=== PATIENT | male | born 1955 | race Caucasian/White ===

== ENCOUNTER 2017-07-23 10:38 | Emergency (ER) | payer MEDICARE, OTHER ==
[2017-07-23 11:13] LABS: #Basophils 0.1 thou/uL (0.0-0.2); #Eosinphils 0.4 thou/uL (0.0-0.7); #Lymphocytes 1.9 thou/uL (1.20-3.40); #Monocytes 0.6 thou/uL (0.11-0.59); #Neutrophils 4.7 thou/uL (1.40-6.50); %Basophils 1.2 % (0.0-1.0); %Eosinophils 5.4 % (0.0-10.0); %Lymphocytes 24.5 % (21.0-51.0); %Monocytes 7.9 % (0.0-10.0); %Neutrophils 60.9 % (42.0-75.0); Hemoglobin 16.5 g/dL (14.0-18.0); Mean Corpuscular Hemoglobin 28.7 pg (27.0-31.0); Mean Corpuscular Volume 86.8 fl (80.0-94.0); Mean Platelet Volume 7.4 fL (7.4-10.4); Platelet Count 220 thou/uL (130-400); RBC Distribution Width 13.2 % (11.5-14.5); Red Blood Cell (RBC) Count 5.76 mill/uL (4.70-6.10); White Blood Cell (WBC) Count 7.7 thou/uL (4.8-10.8)
[2017-07-23] MEDS ORDERED: Ondansetron HCl/PF 4 MG/2 ML Vial ONE (11:14)
[2017-07-23] MEDS ORDERED: Ketorolac Tromethamine 30 MG/ML VIAL ONE (11:14)
[2017-07-23 11:26] LABS: Anion Gap 16 mmol/L (10-20); BUN (Urea Nitrogen) 11 mg/dL (8.4-25.7); Calc. Creatinine Clearance 0 mL/min (70-130); Calcium 9.8 mg/dL (7.8-10.44); Carbon Dioxide 27 mmol/L (23-31); Chloride 101 mmol/L (98-107); Estimated GFR-MDRD 83; Glucose 122 mg/dL (80-115); Potassium 4.1 mmol/L (3.5-5.1); Sodium 140 mmol/L (136-145)
[2017-07-23 11:34] LABS: Bilirubin Negative (Negative); Blood, Urine Moderate (Negative); Clarity Clear (Clear); Glucose, Urine (Dipstick) 100 mg/dL (Negative); Leukocyte Negative (Negative); Nitrite Negative (Negative); Protein, Urine (Dipstick) Negative (Neg-Trace); Specific Gravity, Urine 1.015 (1.005-1.030); Urobilinogen 0.2 mg/dL (0.2-1.0); pH, Urine 8.5 (5.0-9.0)
[2017-07-23 11:39] LABS: Squamous Epithelial 0-3 HPF (0-3); WBC/HPF 0-3 HPF (0-3)
--- NOTE | 2017-07-23 11:57 | CT ---
CT OF THE ABDOMEN AND PELVIS WITHOUT CONTRAST: COMPARISON: 02/05/17. HISTORY: Left flank pain with a history of kidney stones. The patient's spouse says that he has right low abdirashid k pain. TECHNIQUE: Multiple contiguous axial images were obtained in a CT of the abdomen and pelvis without contrast. C oronal reformats were performed. FINDINGS: There are 2 calcifications in the distal aspect of the left ureter at the ureterovesical junction. T he largest measures 5-6 mm in size and the smaller one is more proximal. There is moderate left-side d hydronephrosis. There are punctate 1 mm calcifications in the right kidney. There is no evidence of right-sided hydronephrosis. Hyperdensity is seen in the dependent aspect of the gallbladder which likely represents gallstones. The liver, adrenal glands, spleen, and pancreas are unremarkable, although evaluation is limited on t his noncontrast examination. The large and small bowel are unremarkable. No abdominal or pelvis lymphadenopathy are seen. Athero sclerotic calcifications are seen in the aorta. Degenerative changes are seen in the aorta. Degenerative changes are seen in the spine. The visualized inferior thorax and abdominal wall soft t issues are unremarkable. IMPRESSION: 1. Left distal ureteral calcifications with moderate left hydronephrosis. 2. Nonobstructing right renal calcifications. POS: [facility]
== END 2017-07-23 12:00 | disposition home or self-care (01) ==
LOC: SCSER 10:38
DX: N13.2 Hydronephrosis with renal and ureteral calculous obstruction (principal)
CPT/HCPCS: 74176; 80048; 81003; 81015; 85025; 87086; 96361; 96374; 96375; J1885; J2405

== ENCOUNTER 2017-08-02 14:27 | Outpatient (CLI) | payer MEDICARE, OTHER ==
[~2017-08-02 14:27] MED LIST: Gadobenate Dimeglumine 529 MG/1 ML (20ML VIAL) ONE
--- NOTE | 2017-08-02 15:26 | RAD ---
LUMBAR SPINE FOUR VIEWS: Date: 08-02-17 History: Multiple sclerosis. Back pain. FINDINGS: Lumbar vertebral body height and alignment appears normal on the neutral lateral view. The pedicles a ppear intact on frontal imaging. There is a suture line overlying the mid right abdomen. There is multilevel lower lumbar spine facet hypertrophy. There is atherosclerotic calcification of t he abdominal aorta. On flexion imaging there is no significant anterolisthesis or retrolisthesis. On extension imaging there is no significant anterolisthesis or retrolisthesis. There is mild anterior osteophyte formation at T12-L1 as well as L2-3 and L3-4. IMPRESSION: Degenerative changes. No acute osseous abnormality. If there are radicular symptoms, MRI advised. POS: [facility]
--- NOTE | 2017-08-02 16:29 | MRI ---
MRI OF THE LUMBAR SPINE WITH AND WITHOUT CONTRAST 08/02/17 COMPARISON: None. HISTORY: Chronic low back pain for several years, multiple sclerosis. FINDINGS: There is a T2 hyperintense nonenhancing lesion within the distal aspect of the thoracic cord at the a xial level of the T12-L1 interspace measuring approximately 5 mm, consistent with the provided histor y of multiple sclerosis/demyelinating disease. The sagittal STIR imaging demonstrates no focal area of osseous marrow edema. No anterolisthesis or r etrolisthesis is seen within the lumbar spine. Lumbar vertebral body height and alignment is grossly unremarkable. T12-L1: Intervertebral disc height and signal intensity is within normal limits. There is mild bilate ral facet hypertrophy and mild anterior osteophyte formation with no significant central canal or phil ral foraminal stenosis. L1-2: There is a small right foraminal disc protrusion. There is mild bilateral facet hypertrophy. Th ere is no significant central canal or neural foraminal stenosis. L2-3: Mild bilateral facet hypertrophy and hypertrophy of ligamentum flavum. There is disc space narr owing and mild disc bulge. There is no central canal stenosis or neural foraminal stenosis. L4-5: There is mild bilateral facet hypertrophy. There is disc space narrowing and disc bulge with no significant central canal or neural foraminal stenosis. L4-5: Mild bilateral facet hypertrophy. There is disc desiccation with no significant central canal o r neural foraminal stenosis. L5-S1: There is disc space narrowing and disc desiccation with central disc protrusion and associated annular tear. No associated central canal stenosis. There is bilateral facet hypertrophy and mild bi lateral neural foraminal stenosis. There is mild enhancement associated with the small central annula r tear posteriorly. Imaged retroperitoneal structures demonstrate no worrisome findings. Postcontrast imaging demonstrates no abnormal enhancement involving nerve roots of the cauda equina. Intervertebral disc signal and osseous marrow signal appears unremarkable on postcontrast imaging wit h no abnormal enhancement seen. IMPRESSION: 1. T2 hyperintense intramedullary lesion within the distal aspect of the thoracic cord, consiste nt with the patient's history of demyelinating disease. Recommend full evaluation of the spine with M R of the cervical and thoracic spine as well as MRI of the brain with and without contrast to evaluat ed full extent of demyelinating disease as clinically warranted. 2. No significant central canal or neural foraminal stenosis seen within the lumbar spine. Degen erative disc disease as above. POS: [facility]
== END 2017-08-02 14:28 | disposition home or self-care (01) ==
LOC: TBSIIMAG 14:27
PROVIDERS: ATTEND Surgery
DX: M54.5 Low back pain (principal); G35 Multiple sclerosis; M47.816 Spondylosis without myelopathy or radiculopathy, lumbar region
CPT/HCPCS: 72110; 72158

== ENCOUNTER 2017-08-23 13:27 | Outpatient (CLI) | payer MEDICARE, OTHER ==
--- NOTE | 2017-08-23 16:32 | MRI ---
MRI OF THE THORACIC SPINE WITH AND WITHOUT CONTRAST: INDICATION: Comes today with a history of multiple sclerosis. TECHNIQUE: Multiplanar, multisequence MR images were obtained of the thoracic spine with and without contrast. 16 ml of Multihance was utilized. COMPARISON: No comparisons are available. On the central, sagittal, and axillary images there is posterior area of increased T2 signal intensit y involving the posterior aspect of the spinal cord at C7 and C7-T1. At T1-T2, there is no appreciable central canal or neural foraminal narrowing. There is a mild broad -based bulge. At T2-T3, there is no appreciable central canal or neural foraminal narrowing. At T3-T4, there is no appreciable central canal or neural foraminal narrowing. No cord signal abnorm ality is evident. At T4-T5, there is no appreciable central canal or neural foraminal narrowing. No cord signal abnorm ality is evident. At T5-T6, no definite central canal or neural foraminal narrowing is evident. At T6-T7, there is no appreciable central canal or neural foraminal narrowing. At T7-T8, there is no appreciable central canal or neural foraminal narrowing. At T8-T9, there is a right paracentral protrusion causing mild right ventral lateral effacement of th e subarachnoid space. There is very subtle increased T2 signal involving the spinal cord at T8 extending to the T8-T9 verte bral level. At T9-T10, there is no appreciable central canal or neural foraminal narrowing. There is a subtle T2 signal abnormality within the spinal cord at T9 extending caudate to the level o f the superior aspect of T10. At T10-T11, there is no appreciable central canal or neural foraminal narrowing. There are subtle T2 signal abnormalities seen within the central aspect of the spinal cord at T10-T1. At T11-12, there is no appreciable central canal or neural foraminal narrowing. At T12-L1, there a 6 x 1 cm T2 hyperintense lesion within the spinal cord at the T12-L1 level. No de finite enhancing lesion is identified. IMPRESSION: Multiple scattered areas of T2 hyperintensity seen within the spinal cord from the cervicothoracic ju nction through the T12-L1 level without appreciable enhancement but remains suspicious for nonactive multiple sclerosis plaques. POS: [facility]
--- NOTE | 2017-08-23 17:26 | MRI ---
EXAM: CERVICAL SPINE MRI WITH AND WITHOUT CONTRAST 08/23/17 HISTORY: Unsteady gait. History of multiple sclerosis. COMPARISON: None. TECHNIQUE: Cervical spine MRI is performed with and without intravenous gadolinium administration. Multisequent ial, multiplanar imaging performed. FINDINGS: Appropriate T1 marrow signal intensity of the cervical vertebrae. Cervical spine vertebral body heigh t is maintained. No fracture. No significant STIR hyperintensity to suggest edema or ligamentous inju ry. The visualized brain parenchyma and cervicomedullary junction are unremarkable. There are patchy T2 hyperintensities throughout the cervical cord. There is no evidence of enhancement in the cervical cord. There are T2 hyperintensities when the central aspect of the cervical cord at the mid body of C3, po sterior cervical cord at the C3-C4 disc space. Anterior cord at the C4-C5 disc space, left and right aspect of the cord at the C6 vertebral body and posterior aspect of the cord at the C7 vertebral body. C2-C3: Central disc osteophyte complex results in mass effect upon the cervical cord. Mild central ca nal stenosis. Degenerative changes of the right uncovertebral joint results in severe right neural fo raminal narrowing. Left neural foramen is patent. C3-C4: Broad based disc osteophyte complex with a central component does deform the thecal sac. There is mild central canal stenosis. Degenerative changes in the bilateral uncovertebral joints results in mild bilateral foraminal narrowing. C4-C5: Broad based disc osteophyte complex abuts the thecal sac. There is deformity of the ventral th ecal sac and ventral cord. Mild central canal stenosis. Degenerative change in both uncovertebral jhony nts and facet hypertrophy result in moderate bilateral foraminal narrowing. C5-C6: Broad based disc osteophyte complex with a left paracentral component. Mild to moderate centra l canal stenosis. Degenerative changes in both uncovertebral joints results in moderate bilateral for aminal narrowing. C6-C7: No high grade central canal stenosis. Moderate bilateral foraminal narrowing. C7-T1: No high grade central canal stenosis. Mild bilateral foraminal narrowing. IMPRESSION: 1. Degenerative changes cervical spine as above. 2. Multifocal T2 hyperintensity scattered throughout the cervical cord suggesting demyelinating plaques. No evidence of enhancement to suggest active demyelination. POS: [facility]
--- NOTE | 2017-08-23 17:33 | MRI ---
EXAM: BRAIN MRI WITH AND WITHOUT CONTRAST 08/23/17 HISTORY: Unsteady gait. Gait difficulty. Multiple sclerosis. COMPARISON: None. TECHNIQUE: Brain MRI is performed with and without intravenous gadolinium administration. Multisequential, multi planar imaging is performed. FINDINGS: No parenchymal hemorrhage. No extra-axial hematoma. No parenchymal mass, mass effect or midline shift. There is brain volume loss that is greater than ex pected for patient's age. Cortical luna-white matter differentiation is preserved. Ventricles and sulci are patent and symmetric. Central arterial flow voids are maintained. There are extensive T2 and FLAIR white matter hyperintens ities with a distribution compatible with patient's history of multiple sclerosis. Note, there is in creased signal intensity in the axial diffusion weighted images, there is no signal loss on the ADC m ap suggesting T2 shine through. A definite acute restricted diffusion is not appreciated. There is no evidence of enhancement. There is no MR evidence of an active demyelinating plaque. There is left sphenoid sinus disease. Adequate aeration of the mastoid air cells. No pathologic enhancement of the brain parenchyma. Calvarium has a normal T1 marrow signal intensity. Midline brain parenchymal structures are unremarka ble on the T1 weighted images. IMPRESSION: 1. Multifocal T2 and FLAIR white matter hyperintensities with a distribution compatible with the patient's history of multiple sclerosis. 2. Absent restricted diffusion. Absent enhancement. No MR evidence of active demyelination. POS: [facility]
--- NOTE | 2017-08-23 18:00 | RAD ---
CERVICAL SPINE THREE VIEWS 08/23/17 HISTORY: 62-year-old male with history of multiple sclerosis and gate difficulty. Five views of the cervical spine including flexion and extension lateral views. Status post laminectomy changes of C3, C4, C5, and C6. C7 and C7-T1 and T1 vertebral bodies are at l east partially obscured on the lateral view. No prevertebral soft tissue swelling. Multilevel disc os teophytosis and facet arthrosis. No evidence for abnormal translation between flexion and extension i nvolving the visualized C-spine. IMPRESSION: Status post laminectomy changes at C3 through C6. No evidence for abnormal translation between flexio n and extension. Generalized spondylosis. POS: [facility]
== END 2017-08-23 13:28 | disposition home or self-care (01) ==
LOC: TBSIIMAG 13:27
PROVIDERS: ATTEND Surgery
DX: G35 Multiple sclerosis (principal); M54.2 Cervicalgia; R26.9 Unspecified abnormalities of gait and mobility; M47.892 Other spondylosis, cervical region; Z98.890 Other specified postprocedural states
CPT/HCPCS: 70553; 72050; 72156; 72157; A9579

== ENCOUNTER 2022-10-29 11:24 | Inpatient (IN) | payer MEDICARE ==
[2022-10-29 14:20] VITALS: BMI 23.8
[2022-10-29] MEDS ORDERED: Ondansetron PF 4 MG/2 ML Vial IVP PRN (14:31)
[2022-10-29] MEDS ORDERED: Heparin 10,000 UNITS/ 10 ML VIAL SLOW IVP SCH (14:45)
[2022-10-29] MEDS ORDERED: Heparin 25,000 units/D5W 500 ML IVPB SCH (14:45)
[2022-10-29] MEDS ORDERED: Communication Order-Pharmacy FS SCH (15:53)
[2022-10-29 16:16] LABS: Hemoglobin 13.7 g/dL (14.0-18.0); Platelet Count 151 10x3/uL (130-400)
[2022-10-29 18:03] LABS: Actual Bicarbonate (HCO3v) 26.2 mEq/L (22-28); Base Excess 1.5 mEq/L (-2.0 to +3.0); Calcium, Ionized (venous) 1.06 mmol/L (1.16-1.32); Chloride (VBG) 100 mmol/L (98-106); Hematocrit-VBG 40 % (42.0-52.0); Hemoglobin (Hb) 13.6 g/dL (12.6-17.4); Potassium (VBG) 3.83 mmol/L (3.70-5.30); Sodium 137.4 mmol/L (133-146); pH (venous) 7.416 (7.32-7.43)
[2022-10-29] MEDS: Rosuvastatin 20 MG TAB PO SCH (20:25)
[2022-10-29] MEDS: Melatonin 3 MG TAB PO SCH (20:26)
[2022-10-29] MEDS: Nitroglycerin 2% Ointment 1 INCH/1 GM Packet TOP SCH (22:52)
[2022-10-30 04:54] LABS: #Eosinphils 0.2 thou/uL (0.0-0.7); #Lymphocytes 0.9 thou/uL (1.20-3.40); #Monocytes 0.6 thou/uL (0.11-0.59); #Neutrophils 4.2 thou/uL (1.40-6.50); %Basophils 0.5 % (0.0-1.0); %Eosinophils 2.6 % (0.0-10.0); %Monocytes 10.6 % (0.0-10.0); %Neutrophils 71.4 % (42.0-75.0); Hemoglobin 13.6 g/dL (14.0-18.0); Mean Corpuscular HGB CONC 34.2 g/dL (32.0-36.0); Mean Corpuscular Hemoglobin 32.8 pg (27.0-31.0); Platelet Count 134 10x3/uL (130-400); RBC Distribution Width 12.2 % (11.5-14.5); Red Blood Cell (RBC) Count 4.13 mill/uL (4.70-6.10); White Blood Cell (WBC) Count 5.9 10x3/uL (4.8-10.8)
[2022-10-30] MEDS: Nitroglycerin 0.4 MG TAB (25 Tab Bottle) SL PRN ×2 (05:51→09:07)
[2022-10-30] MEDS: Nitroglycerin 2% Ointment 1 INCH/1 GM Packet TOP SCH ×3 (05:55→22:01)
[2022-10-30 06:04] LABS: ALT (SGPT) 31 U/L (8-55); AST (SGOT) 166 U/L (5-34); Albumin 3.9 g/dL (3.4-4.8); Alkaline Phosphatase 62 U/L (40-110); Anion Gap 13 mmol/L (10-20); BUN (Urea Nitrogen) 12 mg/dL (8.4-25.7); Bilirubin, Total 0.6 mg/dL (0.2-1.2); Calc. Creatinine Clearance 106 mL/min (70-130); Calcium 9.1 mg/dL (7.8-10.44); Carbon Dioxide 26 mmol/L (23-31); Chloride 103 mmol/L (98-107); Estimated GFR 100; Globulin 2.1 g/dL (2.4-3.5); Glucose 103 mg/dL (80-115); Potassium 3.7 mmol/L (3.5-5.1); Sodium 138 mmol/L (136-145)
[2022-10-30] MEDS ORDERED: Acetaminophen 325 MG TAB PO PRN (07:58)
[2022-10-30] MEDS ORDERED: Amantadine HCl 100 mg Capsule PO SCH (09:00)
[2022-10-30] MEDS ORDERED: Aspirin Chewable 81 MG TAB PO SCH (09:00)
[2022-10-30] MEDS: Atenolol 50 MG TAB PO SCH (09:04)
[2022-10-30] MEDS: Melatonin 3 MG TAB PO SCH (20:57)
[2022-10-30] MEDS: Rosuvastatin 20 MG TAB PO SCH (20:58)
[2022-10-31 04:21] LABS: #Eosinphils 0.2 thou/uL (0.0-0.7); #Monocytes 0.6 thou/uL (0.11-0.59); #Neutrophils 3.1 thou/uL (1.40-6.50); %Basophils 0.2 % (0.0-1.0); %Lymphocytes 19.4 % (21.0-51.0); %Monocytes 12.3 % (0.0-10.0); Hemoglobin 13.1 g/dL (14.0-18.0); Mean Corpuscular HGB CONC 34.3 g/dL (32.0-36.0); Mean Corpuscular Hemoglobin 32.9 pg (27.0-31.0); Mean Corpuscular Volume 95.9 fl (78.0-98.0); Mean Platelet Volume 7.9 fL (7.4-10.4); Platelet Count 147 10x3/uL (130-400); RBC Distribution Width 12.1 % (11.5-14.5); Red Blood Cell (RBC) Count 3.97 mill/uL (4.70-6.10); White Blood Cell (WBC) Count 4.9 10x3/uL (4.8-10.8)
[2022-10-31 04:44] LABS: ALT (SGPT) 24 U/L (8-55); AST (SGOT) 84 U/L (5-34); Albumin 3.7 g/dL (3.4-4.8); Alkaline Phosphatase 58 U/L (40-110); Anion Gap 12 mmol/L (10-20); BUN (Urea Nitrogen) 12 mg/dL (8.4-25.7); Bilirubin, Total 0.6 mg/dL (0.2-1.2); Calc. Creatinine Clearance 102 mL/min (70-130); Calcium 9.2 mg/dL (7.8-10.44); Carbon Dioxide 26 mmol/L (23-31); Chloride 106 mmol/L (98-107); Estimated GFR 98; Globulin 2.2 g/dL (2.4-3.5); Glucose 118 mg/dL (80-115); Potassium 3.8 mmol/L (3.5-5.1); Protein, Total 5.9 g/dL (5.8-8.1); Sodium 140 mmol/L (136-145)
[2022-10-31] MEDS: Nitroglycerin 2% Ointment 1 INCH/1 GM Packet TOP SCH (06:18)
[2022-10-31] MEDS ORDERED: Midazolam HCl 2 mg/2 ml Vial ONE ×2 (07:03)
[2022-10-31] MEDS ORDERED: Fentanyl 250 MCG/5 ML VIAL ONE (07:03)
[2022-10-31] MEDS ORDERED: Dexmedetomidine 200 MCG/2 ML VIAL ONE (07:04)
[2022-10-31] MEDS: Atenolol 50 MG TAB PO SCH (07:53)
[2022-10-31] MEDS ORDERED: PHENYLEPHRINE-NS 100 MCG/ML 10 ML SYRINGE ONE (08:36)
[2022-10-31] MEDS ORDERED: Dexamethasone 4 mg/ml Vial ONE (08:36)
[2022-10-31] MEDS ORDERED: Bupivacaine HCl 0.5%/Epinephrine 1:200,000/PF 30 ml Vial ONE (08:37)
[2022-10-31] MEDS ORDERED: Albumin 5% 500 ML ONE (08:37)
[2022-10-31] MEDS ORDERED: Pantoprazole 40 MG VIAL IVP SCH (09:00)
[2022-10-31] MEDS ORDERED: Phenylephrine 10 MG/ML VIAL ONE (09:57)
[2022-10-31] MEDS ORDERED: ePHEDrine Sulfate 50 MG/10 ML VIAL ONE (09:57)
[2022-10-31] MEDS ORDERED: CEFAZOLIN 2 GM in Sodium Chloride 0.9% 100 ML IVPB SCH (10:00)
[2022-10-31] MEDS ORDERED: Potassium Chloride 60 MEQ/30 ML VIAL ONE (10:43)
[2022-10-31] MEDS ORDERED: Vancomycin 1 GM VIAL ONE (10:43)
[2022-10-31] MEDS ORDERED: PROPOFOL 200 MG/20 ML VIAL ONE (10:43)
[2022-10-31] MEDS ORDERED: Vecuronium 10 MG VIAL ONE (10:43)
[2022-10-31] MEDS ORDERED: NEOSTIGMINE 3 MG/3 ML SYR 3 MG/3 ML SYRINGE ONE (10:43)
[2022-10-31] MEDS ORDERED: Calcium Chloride 1 GM/10 ML Abboject SYRINGE ONE (10:43)
[2022-10-31] MEDS ORDERED: Magnesium 5 GM/10 ML VIAL ONE (10:43)
[2022-10-31] MEDS ORDERED: Heparin 5,000 UNITS/ML VIAL ONE (10:43)
[2022-10-31] MEDS ORDERED: Nitroglycerin 50 MG/250 ML BOT ONE (10:43)
[2022-10-31] MEDS ORDERED: Cardioplegic Soln 1,000 ML BAG ONE (10:43)
[2022-10-31] MEDS ORDERED: Ondansetron PF 4 MG/2 ML Vial ONE (10:43)
[2022-10-31] MEDS ORDERED: Lidocaine 2% PF 100 mg/5 ml Syringe ONE (10:43)
[2022-10-31] MEDS ORDERED: Papaverine 60 MG/2 ML VIAL ONE (10:43)
[2022-10-31] MEDS ORDERED: Lidocaine 1% PF 5 ML VIAL ONE (10:43)
[2022-10-31] MEDS ORDERED: Dexamethasone 20 MG/5 ML VIAL ONE (10:43)
[2022-10-31] MEDS ORDERED: Norepinephrine 4 MG/4 ML VIAL ONE (10:43)
[2022-10-31] MEDS ORDERED: Sodium Bicarb 50 MEQ/50 ML VIAL ONE (10:43)
[2022-10-31] MEDS ORDERED: Glycopyrrolate 0.2 MG/ML 5 ML SYRINGE ONE (10:43)
[2022-10-31] MEDS ORDERED: Aminocaproic Acid 5 GM/20 ML VIAL ONE (10:43)
[2022-10-31] MEDS ORDERED: Heparin 30,000 units/30 ml VIAL ONE (10:43)
[2022-10-31] MEDS ORDERED: Mannitol 12.5 GM/50 ML ONE (10:43)
[2022-10-31] MEDS ORDERED: Protamine Sulfate 250 MG/25 ML VIAL ONE (10:43)
[2022-10-31] MEDS ORDERED: Thrombin 5000 UNITS/5 ML VIAL ONE (10:43)
[2022-10-31] MEDS ORDERED: Ipratropium/Albuterol 3 ML NEB NEB PRN (14:52)
[2022-10-31] MEDS ORDERED: Potassium Chloride 20 MEQ in Lactated Ringer's 1,000 ML IV SCH (14:52)
[2022-10-31] MEDS ORDERED: Hetastarch 6% 500 ML 500 ML IVPB PRN (14:52)
[2022-10-31] MEDS ORDERED: NOREPINEPHRINE 8 MG/250 ML-D5W 250 ML IVPB PRN (14:52)
[2022-10-31] MEDS ORDERED: hydrALAZINE 20 MG/ML VIAL SLOW IVP PRN (14:52)
[2022-10-31] MEDS ORDERED: Bisacodyl 10 MG SUPP PR PRN (14:52)
[2022-10-31] MEDS ORDERED: Potassium Chloride 20 MEQ/100 ML PREMIX BAG IVPB PRN (14:52)
[2022-10-31] MEDS ORDERED: Morphine 2 MG/ML VIAL SLOW IVP PRN (14:52)
[2022-10-31] MEDS ORDERED: niCARdipine 25 MG in Sodium Chloride 0.9% 250 ML 250 ML IVPB PRN (14:52)
[2022-10-31] MEDS ORDERED: Guaifenesin DM 100-10/5 ML UDCUP PO PRN (14:52)
[2022-10-31 15:00] LABS: Hemoglobin 11.7 g/dL (14.0-18.0); Platelet Count 107 10x3/uL (130-400)
[2022-10-31] MEDS ORDERED: fentaNYL 50 mcg/mL 1 mL Vial SLOW IVP PRN ×2 (15:06→15:20)
[2022-10-31 15:30] LABS: #Eosinphils 0.1 thou/uL (0.0-0.7); #Lymphocytes 0.5 thou/uL (1.20-3.40); #Monocytes 0.3 thou/uL (0.11-0.59); #Neutrophils 6.4 thou/uL (1.40-6.50); %Basophils 0.1 % (0.0-1.0); %Eosinophils 0.9 % (0.0-10.0); %Lymphocytes 6.2 % (21.0-51.0); %Monocytes 4.2 % (0.0-10.0); %Neutrophils 88.6 % (42.0-75.0); Hemoglobin 11.7 g/dL (14.0-18.0); Mean Corpuscular HGB CONC 33.7 g/dL (32.0-36.0); Mean Corpuscular Hemoglobin 32.2 pg (27.0-31.0); Mean Corpuscular Volume 95.7 fl (78.0-98.0); Mean Platelet Volume 8.1 fL (7.4-10.4); Platelet Count 107 10x3/uL (130-400); Red Blood Cell (RBC) Count 3.63 mill/uL (4.70-6.10); White Blood Cell (WBC) Count 7.2 10x3/uL (4.8-10.8)
[2022-10-31] MEDS ORDERED: Dextrose 5% in Water 1,000 ML IV PRN (15:30)
[2022-10-31] MEDS ORDERED: Dextrose 50% Abboject 50 ML SYRINGE SLOW IVP PRN (15:30)
[2022-10-31 15:35] LABS: INR-International Normal Ratio 1.1; PTT 32.4 sec (22.9-36.1); Prothrombin Time 14.9 sec (12.0-14.7)
[2022-10-31 15:51] LABS: Platelet Morphology Comment Appears Decreased; RBC Morphology Normal
[2022-10-31 15:57] LABS: Anion Gap 11 mmol/L (10-20); BUN (Urea Nitrogen) 10 mg/dL (8.4-25.7); Calc. Creatinine Clearance 130 mL/min (70-130); Calcium 7.4 mg/dL (7.8-10.44); Carbon Dioxide 23 mmol/L (23-31); Chloride 110 mmol/L (98-107); Estimated GFR 105; Glucose 168 mg/dL (80-115); Potassium 4.1 mmol/L (3.5-5.1); Sodium 140 mmol/L (136-145)
[2022-10-31] MEDS: Ondansetron PF 4 MG/2 ML Vial IVP PRN (16:11)
[2022-10-31] MEDS: traMADol HCl 50 MG TAB PO PRN ×2 (16:12→23:12)
[2022-10-31] MEDS: Insulin Regular 300 UNITS/3 ML VIAL SC PRN ×3 (16:13→23:21)
[2022-10-31] MEDS: Ketorolac Tromethamine 30 MG/ML VIAL IVP SCH ×2 (17:30→23:13)
[2022-10-31] MEDS ORDERED: D5 1/2 NS w/20 mEq KCL 1,000 ML IV SCH (20:00)
[2022-10-31] MEDS: CEFAZOLIN 2 GM in Sodium Chloride 0.9% 100 ML IVPB SCH (20:01)
[2022-10-31] MEDS: Famotidine/PF 20 mg/2ml Vial SLOW IVP SCH (20:01)
[2022-10-31 20:30] LABS: Hemoglobin 11.3 g/dL (14.0-18.0)
[2022-10-31 20:40] LABS: Potassium 3.9 mmol/L (3.5-5.1)
[2022-10-31] MEDS ORDERED: Atorvastatin Calcium 20 MG TAB PO SCH (21:00)
[2022-10-31] MEDS ORDERED: Melatonin 3 MG TAB PO SCH (22:00)
[2022-11-01] MEDS: CEFAZOLIN 2 GM in Sodium Chloride 0.9% 100 ML IVPB SCH ×2 (02:14→12:18)
[2022-11-01 04:27] LABS: #Lymphocytes 0.5 thou/uL (1.20-3.40); #Monocytes 0.7 thou/uL (0.11-0.59); #Neutrophils 7.5 thou/uL (1.40-6.50); %Basophils 0.1 % (0.0-1.0); %Eosinophils 0.1 % (0.0-10.0); %Lymphocytes 5.9 % (21.0-51.0); %Monocytes 7.7 % (0.0-10.0); %Neutrophils 86.2 % (42.0-75.0); Hemoglobin 10.2 g/dL (14.0-18.0); Mean Corpuscular HGB CONC 33.8 g/dL (32.0-36.0); Mean Corpuscular Hemoglobin 32.2 pg (27.0-31.0); Mean Corpuscular Volume 95.5 fl (78.0-98.0); Mean Platelet Volume 8.3 fL (7.4-10.4); Platelet Count 127 10x3/uL (130-400); Red Blood Cell (RBC) Count 3.16 mill/uL (4.70-6.10); White Blood Cell (WBC) Count 8.7 10x3/uL (4.8-10.8)
[2022-11-01 04:51] LABS: Anion Gap 11 mmol/L (10-20); BUN (Urea Nitrogen) 14 mg/dL (8.4-25.7); Calc. Creatinine Clearance 114 mL/min (70-130); Calcium 8.5 mg/dL (7.8-10.44); Carbon Dioxide 24 mmol/L (23-31); Chloride 106 mmol/L (98-107); Estimated GFR 101; Glucose 126 mg/dL (80-115); Sodium 137 mmol/L (136-145)
[2022-11-01] MEDS: traMADol HCl 50 MG TAB PO PRN (05:12)
[2022-11-01] MEDS: Ketorolac Tromethamine 30 MG/ML VIAL IVP SCH ×3 (05:13→18:21)
[2022-11-01] MEDS: Famotidine/PF 20 mg/2ml Vial SLOW IVP SCH (08:56)
[2022-11-01] MEDS: Magnesium 2 GM/50 ML(in water) 2 GM in Premix Bag 1 BAG IVPB SCH (08:56)
[2022-11-01] MEDS ORDERED: Aspirin 325 MG TAB PO SCH (09:00)
[2022-11-01] MEDS ORDERED: Nitroglycerin 0.4 MG TAB (25 Tab Bottle) SL PRN (10:19)
[2022-11-01] MEDS ORDERED: diphenhydrAMINE 25 MG CAP PO PRN (10:19)
[2022-11-01] MEDS ORDERED: Zolpidem Tartrate 5 MG TAB PO PRN (10:19)
[2022-11-01] MEDS ORDERED: Mineral Oil ENEMA PR PRN (10:19)
[2022-11-01] MEDS ORDERED: Sodium Chloride 0.9% 500 ML IV SCH (11:30)
[2022-11-01] MEDS ORDERED: NOREPINEPHRINE 8 MG/250 ML-D5W 250 ML IVPB SCH (11:30)
[2022-11-01] MEDS: Bisacodyl 5 MG TAB PO PRN (12:22)
[2022-11-01] MEDS ORDERED: Insulin Glargine 30 UNITS/0.3 ML VIAL SC PRN (15:29)
[2022-11-01] MEDS: Atorvastatin Calcium 40 MG TAB PO SCH (20:18)
[2022-11-01] MEDS: Melatonin 3 MG TAB PO SCH (20:18)
[2022-11-01] MEDS ORDERED: Famotidine 20 MG TAB PO SCH (21:00)
[2022-11-02] MEDS: Ketorolac Tromethamine 30 MG/ML VIAL IVP SCH ×4 (00:45→17:41)
[2022-11-02 04:59] LABS: Anion Gap 9 mmol/L (10-20); BUN (Urea Nitrogen) 23 mg/dL (8.4-25.7); Calc. Creatinine Clearance 103 mL/min (70-130); Calcium 8.7 mg/dL (7.8-10.44); Carbon Dioxide 25 mmol/L (23-31); Chloride 100 mmol/L (98-107); Estimated GFR 97; Glucose 123 mg/dL (80-115); Magnesium 2.2 mg/dL (1.6-2.6); Potassium 3.6 mmol/L (3.5-5.1); Sodium 130 mmol/L (136-145)
[2022-11-02] MEDS: Magnesium 2 GM/50 ML(in water) 2 GM in Premix Bag 1 BAG IVPB SCH (07:33)
[2022-11-02 08:41] LABS: Hemoglobin 9.9 g/dL (14.0-18.0); Mean Corpuscular Hemoglobin 32.5 pg (27.0-31.0); Mean Corpuscular Volume 95.7 fl (78.0-98.0); Mean Platelet Volume 8.7 fL (7.4-10.4); Platelet Count 136 10x3/uL (130-400); RBC Distribution Width 12.1 % (11.5-14.5); Red Blood Cell (RBC) Count 3.05 mill/uL (4.70-6.10); White Blood Cell (WBC) Count 7.5 10x3/uL (4.8-10.8)
[2022-11-02] MEDS ORDERED: Aspirin 325 mg Enteric Coated Tablet PO SCH (09:00)
[2022-11-02] MEDS ORDERED: Furosemide 20 MG TAB PO SCH (10:45)
[2022-11-02] MEDS: Atorvastatin Calcium 40 MG TAB PO SCH (21:02)
[2022-11-02] MEDS: Melatonin 3 MG TAB PO SCH (21:02)
[2022-11-02] MEDS: traMADol HCl 50 MG TAB PO PRN (22:28)
[2022-11-03] MEDS: Ketorolac Tromethamine 30 MG/ML VIAL IVP SCH ×4 (00:05→17:37)
[2022-11-03] MEDS: traMADol HCl 50 MG TAB PO PRN (02:39)
[2022-11-03] MEDS ORDERED: Potassium Chloride 10 MEQ TAB PO SCH (08:00)
[2022-11-03] MEDS: Clopidogrel Bisulfate 75 MG TAB PO SCH (08:56)
[2022-11-03] MEDS: Aspirin 81 mg Enteric Coated Tablet PO SCH (08:56)
[2022-11-03] MEDS: Milk Of Magnesia 30 ML UDCUP PO PRN (08:56)
[2022-11-03] MEDS: Carvedilol 3.125 MG TAB PO SCH ×2 (08:57→17:38)
[2022-11-03] MEDS ORDERED: Furosemide 20 MG TAB PO SCH (09:00)
[2022-11-03] MEDS ORDERED: Furosemide 40 MG TAB PO SCH (09:00)
[2022-11-03] MEDS ORDERED: Iopamidol-370 76% 500 ML MDV (1 ML CHARGE) ONE (10:39)
[2022-11-03 12:09] LABS: #Eosinphils 0.1 thou/uL (0.0-0.7); #Lymphocytes 0.7 thou/uL (1.20-3.40); #Monocytes 0.5 thou/uL (0.11-0.59); #Neutrophils 3.8 thou/uL (1.40-6.50); %Basophils 0.4 % (0.0-1.0); %Eosinophils 1.5 % (0.0-10.0); %Lymphocytes 13.1 % (21.0-51.0); %Monocytes 9.4 % (0.0-10.0); %Neutrophils 75.6 % (42.0-75.0); Hemoglobin 9.5 g/dL (14.0-18.0); Mean Corpuscular HGB CONC 33.9 g/dL (32.0-36.0); Mean Corpuscular Hemoglobin 32.3 pg (27.0-31.0); Mean Corpuscular Volume 95.2 fl (78.0-98.0); Mean Platelet Volume 8.4 fL (7.4-10.4); Platelet Count 142 10x3/uL (130-400); Red Blood Cell (RBC) Count 2.95 mill/uL (4.70-6.10)
[2022-11-03 12:29] LABS: ALT (SGPT) 42 U/L (8-55); AST (SGOT) 41 U/L (5-34); Albumin 3.5 g/dL (3.4-4.8); Alkaline Phosphatase 109 U/L (40-110); Anion Gap 13 mmol/L (10-20); BUN (Urea Nitrogen) 18 mg/dL (8.4-25.7); Bilirubin, Total 0.7 mg/dL (0.2-1.2); Calc. Creatinine Clearance 110 mL/min (70-130); Calcium 8.8 mg/dL (7.8-10.44); Carbon Dioxide 26 mmol/L (23-31); Chloride 103 mmol/L (98-107); Estimated GFR 98; Globulin 2.1 g/dL (2.4-3.5); Glucose 128 mg/dL (80-115); Magnesium 1.7 mg/dL (1.6-2.6); Potassium 3.8 mmol/L (3.5-5.1); Protein, Total 5.6 g/dL (5.8-8.1); Sodium 138 mmol/L (136-145)
[2022-11-03] MEDS: Bisacodyl 5 MG TAB PO PRN (17:41)
[2022-11-03] MEDS ORDERED: Magnesium 2 GM/50 ML(in water) 2 GM in Premix Bag 1 BAG IVPB SCH (18:15)
[2022-11-03] MEDS: Melatonin 3 MG TAB PO SCH (20:30)
[2022-11-03] MEDS: Atorvastatin Calcium 40 MG TAB PO SCH (20:30)
[2022-11-03] MEDS: Mag-Al 1200 mg/1200 mg/30 ML UDCUP PO PRN (22:53)
[2022-11-04 05:48] LABS: #Eosinphils 0.1 thou/uL (0.0-0.7); #Lymphocytes 0.7 thou/uL (1.20-3.40); #Monocytes 0.5 thou/uL (0.11-0.59); #Neutrophils 4.6 thou/uL (1.40-6.50); %Basophils 0.4 % (0.0-1.0); %Eosinophils 2.2 % (0.0-10.0); %Lymphocytes 11.2 % (21.0-51.0); %Monocytes 8.6 % (0.0-10.0); %Neutrophils 77.6 % (42.0-75.0); Hemoglobin 9.4 g/dL (14.0-18.0); Mean Corpuscular HGB CONC 32.6 g/dL (32.0-36.0); Mean Corpuscular Hemoglobin 31.3 pg (27.0-31.0); Mean Corpuscular Volume 95.9 fl (78.0-98.0); Mean Platelet Volume 8.3 fL (7.4-10.4); Platelet Count 182 10x3/uL (130-400); RBC Distribution Width 11.9 % (11.5-14.5); Red Blood Cell (RBC) Count 3.02 mill/uL (4.70-6.10); White Blood Cell (WBC) Count 5.9 10x3/uL (4.8-10.8)
[2022-11-04 06:05] LABS: Phosphorus 3.2 mg/dL (2.3-4.7)
[2022-11-04 06:07] LABS: ALT (SGPT) 40 U/L (8-55); AST (SGOT) 34 U/L (5-34); Albumin 3.5 g/dL (3.4-4.8); Alkaline Phosphatase 112 U/L (40-110); Anion Gap 12 mmol/L (10-20); BUN (Urea Nitrogen) 20 mg/dL (8.4-25.7); Bilirubin, Total 0.6 mg/dL (0.2-1.2); Calc. Creatinine Clearance 115 mL/min (70-130); Calcium 8.9 mg/dL (7.8-10.44); Carbon Dioxide 27 mmol/L (23-31); Chloride 102 mmol/L (98-107); Estimated GFR 100; Globulin 2.1 g/dL (2.4-3.5); Glucose 130 mg/dL (80-115); Magnesium 2.1 mg/dL (1.6-2.6); Potassium 4.2 mmol/L (3.5-5.1); Protein, Total 5.6 g/dL (5.8-8.1); Sodium 137 mmol/L (136-145)
[2022-11-04] MEDS ORDERED: Carvedilol 3.125 MG TAB PO SCH (06:49)
[2022-11-04] MEDS ORDERED: Ondansetron PF 4 MG/2 ML Vial IVP PRN (08:29)
[2022-11-04] MEDS ORDERED: Ondansetron PF 4 MG/2 ML Vial IVP SCH (08:45)
[2022-11-04] MEDS: Ondansetron PF 4 MG/2 ML Vial IVP PRN (09:28)
[2022-11-04] MEDS: Potassium Chloride 10 MEQ TAB PO SCH ×2 (09:29→16:30)
[2022-11-04] MEDS: Aspirin 81 mg Enteric Coated Tablet PO SCH (09:29)
[2022-11-04] MEDS: Furosemide 40 MG TAB PO SCH ×2 (09:29→14:21)
[2022-11-04] MEDS: Carvedilol 6.25 MG TAB PO SCH ×2 (09:29→16:30)
[2022-11-04] MEDS: Clopidogrel Bisulfate 75 MG TAB PO SCH (09:29)
[2022-11-04] MEDS: Mag-Al 1200 mg/1200 mg/30 ML UDCUP PO PRN (12:45)
[2022-11-04] MEDS: Milk Of Magnesia 30 ML UDCUP PO PRN (12:45)
[2022-11-04] MEDS ORDERED: Calcium Carbonate 500 MG ChewTAB PO PRN (14:11)
[2022-11-04] MEDS ORDERED: Ondansetron ODT 4 MG TAB PO PRN (14:41)
[2022-11-04] MEDS: hydrOXYzine 25 MG TAB PO PRN (19:15)
[2022-11-04] MEDS: Acetaminophen 325 MG TAB PO PRN (20:42)
[2022-11-04] MEDS: Atorvastatin Calcium 40 MG TAB PO SCH (20:42)
[2022-11-04] MEDS: Melatonin 3 MG TAB PO SCH (20:42)
[2022-11-05] MEDS: hydrOXYzine 25 MG TAB PO PRN ×2 (01:57→20:49)
[2022-11-05] MEDS: Potassium Chloride 10 MEQ TAB PO SCH ×2 (08:30→16:23)
[2022-11-05] MEDS: Milk Of Magnesia 30 ML UDCUP PO PRN ×2 (08:30→20:49)
[2022-11-05] MEDS: Furosemide 40 MG TAB PO SCH ×2 (08:31→13:50)
[2022-11-05] MEDS: Aspirin 81 mg Enteric Coated Tablet PO SCH (08:31)
[2022-11-05] MEDS: Carvedilol 6.25 MG TAB PO SCH ×2 (08:31→16:23)
[2022-11-05] MEDS: Clopidogrel Bisulfate 75 MG TAB PO SCH (08:31)
[2022-11-05] MEDS: Atorvastatin Calcium 40 MG TAB PO SCH (20:48)
[2022-11-05] MEDS: Acetaminophen 325 MG TAB PO PRN (20:48)
[2022-11-05] MEDS: Melatonin 3 MG TAB PO SCH (20:49)
[2022-11-06] MEDS: Furosemide 40 MG TAB PO SCH (08:57)
[2022-11-06] MEDS: Carvedilol 6.25 MG TAB PO SCH (08:57)
[2022-11-06] MEDS: Aspirin 81 mg Enteric Coated Tablet PO SCH (08:58)
[2022-11-06] MEDS: Clopidogrel Bisulfate 75 MG TAB PO SCH (08:58)
[2022-11-06] MEDS: Potassium Chloride 10 MEQ TAB PO SCH (08:58)
[2022-11-06] MEDS ORDERED: Lisinopril 2.5 MG TAB PO SCH (09:00)
[2022-11-06 10:44] VITALS: TEMP 99.1
[2022-11-06 11:55] VITALS: BP 120/60
[2022-11-09 12:25] LABS: Actual Bicarbonate (HCO3a) 22.5 mEq/L (22-28); Analyzer IN Cardio OR; Base Excess (BEa) -4.4 mEq/L (-2.0 to +3.0); Calcium, Ionized (arterial) 1.06 mmol/L (1.12-1.30); Carboxyhemoglobin (COHb) 0.1 gm% (0.0-3.0); Hematocrit-ABG 34 % (42.0-52.0); Hemoglobin (Hb) 11.4 g/dL (14.0-18.0); O2 Tension (PaO2), arterial 250.7 mmHg (> 80.0); Potassium - ABG Lab 3.96 mmol/L (3.70-5.30); pH, Arterial 7.279 (7.35-7.45)
[2022-11-09 12:25] LABS: Actual Bicarbonate (HCO3a) 24.2 mEq/L (22-28); Analyzer IN Cardio OR; Base Excess (BEa) -0.2 mEq/L (-2.0 to +3.0); Calcium, Ionized (arterial) 1.08 mmol/L (1.12-1.30); Carboxyhemoglobin (COHb) 0.3 gm% (0.0-3.0); Hematocrit-ABG 30 % (42.0-52.0); Hemoglobin (Hb) 10.2 g/dL (14.0-18.0); O2 Tension (PaO2), arterial 245.7 mmHg (> 80.0); pH, Arterial 7.421 (7.35-7.45)
[2022-11-09 12:26] LABS: Actual Bicarbonate (HCO3a) 25.1 mEq/L (22-28); Analyzer IN Cardio OR; Base Excess (BEa) 0.2 mEq/L (-2.0 to +3.0); CO2 Tension 41.4 mmHg (35.0-45.0); Carboxyhemoglobin (COHb) 0.3 gm% (0.0-3.0); Hematocrit-ABG 28 % (42.0-52.0); Hemoglobin (Hb) 9.4 g/dL (14.0-18.0); O2 Tension (PaO2), arterial 245.5 mmHg (> 80.0); Potassium - ABG Lab 5.12 mmol/L (3.70-5.30)
[2022-11-09 12:26] LABS: Actual Bicarbonate (HCO3a) 27.5 mEq/L (22-28); Analyzer IN Cardio OR; Base Excess (BEa) 1.2 mEq/L (-2.0 to +3.0); CO2 Tension 52.6 mmHg (35.0-45.0); Calcium, Ionized (arterial) 0.95 mmol/L (1.12-1.30); Carboxyhemoglobin (COHb) 0.2 gm% (0.0-3.0); Hematocrit-ABG 26 % (42.0-52.0); Hemoglobin (Hb) 8.8 g/dL (14.0-18.0); O2 Tension (PaO2), arterial 333.3 mmHg (> 80.0); Potassium - ABG Lab 4.76 mmol/L (3.70-5.30); pH, Arterial 7.336 (7.35-7.45)
[2022-11-09 12:26] LABS: Actual Bicarbonate (HCO3a) 24.9 mEq/L (22-28); Analyzer IN Cardio OR; Base Excess (BEa) 0.6 mEq/L (-2.0 to +3.0); CO2 Tension 38.6 mmHg (35.0-45.0); Calcium, Ionized (arterial) 1.09 mmol/L (1.12-1.30); Carboxyhemoglobin (COHb) 0.3 gm% (0.0-3.0); Hematocrit-ABG 36 % (42.0-52.0); Hemoglobin (Hb) 12.4 g/dL (14.0-18.0); O2 Tension (PaO2), arterial 438.4 mmHg (> 80.0); Potassium - ABG Lab 3.94 mmol/L (3.70-5.30); pH, Arterial 7.427 (7.35-7.45)
[2022-11-09 12:27] LABS: Puncture Site Arterial Line
[2022-11-09 12:27] LABS: Actual Bicarbonate (HCO3a) 26.8 mEq/L (22-28); Analyzer IN Cardio OR; Base Excess (BEa) 3.5 mEq/L (-2.0 to +3.0); CO2 Tension 36.1 mmHg (35.0-45.0); Carboxyhemoglobin (COHb) 0.1 gm% (0.0-3.0); Hematocrit-ABG 39 % (42.0-52.0); Hemoglobin (Hb) 13.2 g/dL (14.0-18.0); O2 Tension (PaO2), arterial 390.3 mmHg (> 80.0); Potassium - ABG Lab 3.89 mmol/L (3.70-5.30); Puncture Site Arterial Line; pH, Arterial 7.488 (7.35-7.45)
[2022-11-09 12:28] LABS: Puncture Site Arterial Line
[2022-11-09 12:29] LABS: Calcium, Ionized (arterial) 1.63 mmol/L (1.12-1.30); Puncture Site Arterial Line
[2022-11-09 12:29] LABS: Puncture Site Arterial Line
[2022-11-09 12:30] LABS: Puncture Site Arterial Line
== END 2022-11-06 12:25 | disposition home or self-care (01) | DRG 235 ==
LOC: CCU 11:24 → UNDOADMIN 11:24 → CCU 13:52 → 2NO 11-02 17:24
PROVIDERS: ADMIT Family Medicine; ATTEND Family Medicine
PROC: 02100Z9 Bypass Coronary Artery, One Artery from Left Internal Mammary, Open Approach (ICD-10-PCS; principal; 2022-10-31)
PROC: 021209W Bypass Coronary Artery, Three Arteries from Aorta with Autologous Venous Tissue, Open Approach (ICD-10-PCS; 2022-10-31)
PROC: 06BP4ZZ Excision of Right Saphenous Vein, Percutaneous Endoscopic Approach (ICD-10-PCS; 2022-10-31)
PROC: 5A1221Z Performance of Cardiac Output, Continuous (ICD-10-PCS; 2022-10-31)
PROC: 02L70CK Occlusion of Left Atrial Appendage with Extraluminal Device, Open Approach (ICD-10-PCS; 2022-10-31)
DX: I25.10 Atherosclerotic heart disease of native coronary artery without angina pectoris (principal); I21.A1 Myocardial infarction type 2; J96.01 Acute respiratory failure with hypoxia; J90 Pleural effusion, not elsewhere classified; I31.39 Other pericardial effusion (noninflammatory); E87.1 Hypo-osmolality and hyponatremia; I10 Essential (primary) hypertension; I05.0 Rheumatic mitral stenosis; F41.9 Anxiety disorder, unspecified; R10.13 Epigastric pain; I95.9 Hypotension, unspecified; E78.00 Pure hypercholesterolemia, unspecified; Z88.8 Allergy status to other drugs, medicaments and biological substances; Z79.899 Other long term (current) drug therapy; Z90.49 Acquired absence of other specified parts of digestive tract; Z82.49 Family history of ischemic heart disease and other diseases of the circulatory system
CPT/HCPCS: 36415; 36416; 36430; 71045; 71275; 80048; 80053; 82805; 83036; 83735; 84100; 85014; 85018; 85025; 85027; 85049; 85610; 85730; 86850; 86900; 86901; 93005; 93010; 93798; 97139; C1751; C1776; C9113; J1100; J1644; J1815; J1885; J2001; J2150; J2250; J2370; J2405; J2440; J2704; J2720; J3010; J3370; J3475; J3480; J3490; J7120; P9045; Q9967; S0017; S0028

== ENCOUNTER 2023-01-25 11:38 | Outpatient (CLI) | payer MEDICARE | END 2023-01-25 11:39 | disposition home or self-care (01) | LOC: SCSRAD 11:38 | PROVIDERS: ATTEND Internal Medicine Cardiovascular Disease | DX: J90 Pleural effusion, not elsewhere classified (principal); I25.10 Atherosclerotic heart disease of native coronary artery without angina pectoris | CPT/HCPCS: 36415; 71046; 80061 ==

== ENCOUNTER 2023-01-26 08:33 | Inpatient (IN) | payer MEDICARE ==
[2023-01-26] MEDS ORDERED: Bupivacaine HCl 0.5%/Epinephrine 1:200,000/PF 30 ml Vial ONE (09:20)
[2023-01-26] MEDS ORDERED: Midazolam HCl 2 mg/2 ml Vial ONE (10:01)
[2023-01-26] MEDS ORDERED: SUGAMMADEX SODIUM 200 MG/2 ML VIAL ONE (10:01)
[2023-01-26] MEDS ORDERED: Vasopressin 20 UNITS/ML VIAL ONE (10:01)
[2023-01-26] MEDS ORDERED: Fentanyl 250 MCG/5 ML VIAL ONE (10:01)
[2023-01-26] MEDS ORDERED: Sodium Chloride 0.9% 100 ML ONE (10:04)
[2023-01-26] MEDS ORDERED: CEFAZOLIN 2 GM VIAL ONE (10:04)
[2023-01-26] MEDS ORDERED: Rocuronium Bromide 10 MG/ML (10ML VIAL) ONE (10:13)
[2023-01-26] MEDS ORDERED: PHENYLEPHRINE-NS 100 MCG/ML 10 ML SYRINGE ONE (10:13)
[2023-01-26] MEDS ORDERED: ePHEDrine Sulfate 50 MG/10 ML VIAL ONE (10:13)
[2023-01-26] MEDS ORDERED: Esmolol 100 MG/10 ML VIAL ONE (10:13)
[2023-01-26] MEDS ORDERED: Ketorolac Tromethamine 30 MG/ML VIAL ONE (10:13)
[2023-01-26] MEDS ORDERED: Ondansetron PF 4 MG/2 ML Vial ONE (10:13)
[2023-01-26] MEDS ORDERED: Lidocaine 1% PF 5 ML VIAL ONE (10:13)
[2023-01-26] MEDS ORDERED: Succinylcholine 200 MG/10 ml SYRINGE FS ONE (10:13)
[2023-01-26] MEDS ORDERED: PROPOFOL 200 MG/20 ML VIAL ONE (10:13)
[2023-01-26] MEDS ORDERED: Dexamethasone 20 MG/5 ML VIAL ONE (10:13)
[2023-01-26] MEDS ORDERED: traMADol HCl 50 MG TAB PO PRN (11:04)
[2023-01-26 12:57] VITALS: BMI 22.7
[2023-01-26] MEDS: Carvedilol 6.25 MG TAB PO SCH (17:11)
[2023-01-26] MEDS ORDERED: Melatonin 3 MG TAB PO SCH (21:00)
[2023-01-26] MEDS ORDERED: GLYCINE PO SCH (21:00)
[2023-01-26] MEDS ORDERED: ENZYMES DIGESTIVE PO SCH (21:00)
[2023-01-27 07:26] VITALS: BP 133/77; TEMP 97.9
[2023-01-27] MEDS ORDERED: CO Q-10 CAPSULE 100 MG PO SCH (09:00)
[2023-01-27] MEDS ORDERED: OMEGA PO SCH (09:00)
[2023-01-27] MEDS ORDERED: Amantadine HCl 100 mg Capsule PO SCH (09:00)
[2023-01-27] MEDS ORDERED: PHYTONADIONE 100 MCG PO SCH (09:00)
[2023-01-27] MEDS ORDERED: [UNRECOGNIZED DRUG - OTHER] PO SCH (09:00)
[2023-01-27] MEDS ORDERED: Multivitamin w/Zinc Stress 1 TAB PO SCH (09:00)
[2023-01-27] MEDS ORDERED: Acetylcysteine [N-Acetyl-L-Cysteine] 600 MG Capsule PO SCH (09:00)
[2023-01-27] MEDS ORDERED: Prasterone (Dhea) [Dhea] 50 MG Capsule PO SCH (09:00)
[2023-01-27] MEDS ORDERED: DHA PO SCH (09:00)
[2023-01-27] MEDS ORDERED: Aspirin 81 mg Enteric Coated Tablet PO SCH (09:00)
[2023-01-27] MEDS ORDERED: QUERCETIN PO SCH (09:00)
[2023-01-27] MEDS ORDERED: Magnesium Oxide 250 MG TAB PO SCH (09:00)
[2023-01-27] MEDS ORDERED: Glucosamine Chondroitin Cap PO SCH (09:00)
[2023-01-27] MEDS ORDERED: Cholecalciferol 1,000 UNITS (25 MCG) TAB PO SCH (09:00)
[2023-01-27] MEDS ORDERED: VIT C PO SCH (09:00)
[2023-01-27] MEDS ORDERED: EPA PO SCH (09:00)
[2023-01-27] MEDS ORDERED: Multivitamin W/ Minerals 1 TAB PO SCH (09:00)
[2023-01-27] MEDS ORDERED: FISH OIL PO SCH (09:00)
[2023-01-27] MEDS ORDERED: [UNRECOGNIZED DRUG - OTHER] PO SCH (09:00)
[2023-01-27] MEDS ORDERED: Saccharomyces boulardii 250 MG CAP PO SCH (09:00)
[2023-01-27] MEDS: Carvedilol 6.25 MG TAB PO SCH (09:12)
[2023-01-28] MEDS ORDERED: BROMELAINS 500 MG PO SCH (09:00)
[2023-01-31] MEDS ORDERED: Cyanocobalamin (Vitamin B-12) 1,000 MCG TAB PO SCH (09:00)
[2023-02-01] MEDS ORDERED: Glatiramer Acetate [Copaxone] 40 MG/ML Syringe SC SCH (09:00)
[2023-02-01] MEDS ORDERED: CHROMIUM AMINO ACID CHELATE PO SCH (09:00)
== END 2023-01-27 09:50 | disposition home or self-care (01) | DRG 271 ==
LOC: SURG A 08:33 → 2NO 13:09
PROVIDERS: ADMIT Thoracic Surgery (Cardiothoracic Vascular Surgery); ATTEND Thoracic Surgery (Cardiothoracic Vascular Surgery)
PROC: 0W9D00Z Drainage of Pericardial Cavity with Drainage Device, Open Approach (ICD-10-PCS; principal; 2023-01-26)
DX: I31.39 Other pericardial effusion (noninflammatory) (principal); J90 Pleural effusion, not elsewhere classified; I25.118 Atherosclerotic heart disease of native coronary artery with other forms of angina pectoris; I10 Essential (primary) hypertension; G35 Multiple sclerosis; E78.2 Mixed hyperlipidemia; Z79.82 Long term (current) use of aspirin; Z79.899 Other long term (current) drug therapy; Z90.49 Acquired absence of other specified parts of digestive tract; Z95.1 Presence of aortocoronary bypass graft; Z88.8 Allergy status to other drugs, medicaments and biological substances; Z82.49 Family history of ischemic heart disease and other diseases of the circulatory system; Z80.9 Family history of malignant neoplasm, unspecified; Z83.3 Family history of diabetes mellitus; I25.2 Old myocardial infarction
CPT/HCPCS: 36415; 71045; 71046; 80061; C1729; J1100; J1885; J2250; J2405; J2704; J3010; J3490

== ENCOUNTER 2023-02-17 11:27 | Outpatient (CLI) | payer MEDICARE | END 2023-02-17 11:28 | disposition home or self-care (01) | LOC: SCSRAD 11:27 | PROVIDERS: ATTEND Internal Medicine Cardiovascular Disease | DX: J90 Pleural effusion, not elsewhere classified (principal); J98.11 Atelectasis | CPT/HCPCS: 71046 ==

== ENCOUNTER 2023-03-06 21:21 | Inpatient (IN) | payer MEDICARE ==
[2023-03-06 22:03] LABS: #Eosinphils 0.1 thou/uL (0.0-0.7); %Basophils 0.4 % (0.0-1.0); %Eosinophils 0.9 % (0.0-10.0); %Lymphocytes 11.8 % (21.0-51.0); %Monocytes 10.8 % (0.0-10.0); %Neutrophils 75.7 % (42.0-75.0); Hematocrit 44.8 % (42.0-52.0); Hemoglobin 14.4 g/dL (14.0-18.0); Mean Corpuscular HGB CONC 32.1 g/dL (32.0-36.0); Mean Corpuscular Volume 87.2 fl (78.0-98.0); Platelet Count 173 10x3/uL (130-400); RBC Distribution Width 15.7 % (11.5-14.5); Red Blood Cell (RBC) Count 5.14 mill/uL (4.70-6.10); White Blood Cell (WBC) Count 9.3 10x3/uL (4.8-10.8)
[2023-03-06 22:30] LABS: Troponin I Less than 0.010 ng/mL (< 0.028)
[2023-03-06 22:31] LABS: ALT (SGPT) 18 U/L (8-55); AST (SGOT) 19 U/L (5-34); Albumin 4.2 g/dL (3.4-4.8); Alkaline Phosphatase 80 U/L (40-110); Anion Gap 14 mmol/L (10-20); BUN (Urea Nitrogen) 13 mg/dL (8.4-25.7); Bilirubin, Total 0.5 mg/dL (0.2-1.2); Calc. Creatinine Clearance 0 mL/min (70-130); Calcium 9.6 mg/dL (7.8-10.44); Carbon Dioxide 25 mmol/L (23-31); Chloride 100 mmol/L (98-107); Estimated GFR 96; Globulin 2.5 g/dL (2.4-3.5); Glucose 146 mg/dL (80-115); Potassium 3.3 mmol/L (3.5-5.1); Protein, Total 6.7 g/dL (5.8-8.1); Sodium 136 mmol/L (136-145)
[2023-03-06] MEDS ORDERED: Potassium Chloride 20 MEQ/100 ML PREMIX BAG ONE ×2 (23:23→23:24)
[2023-03-06 23:52] LABS: Magnesium 2.2 mg/dL (1.6-2.6)
[2023-03-07] MEDS ORDERED: Ondansetron ODT 4 MG TAB SL PRN (00:15)
[2023-03-07] MEDS ORDERED: Ondansetron PF 4 MG/2 ML Vial IVP PRN (00:15)
[2023-03-07] MEDS ORDERED: Acetaminophen 325 MG TAB PO PRN (00:15)
[2023-03-07] MEDS ORDERED: Lorazepam 0.5 MG TAB PO PRN (01:00)
[2023-03-07] MEDS ORDERED: Senokot S 8.6-50 MG TAB PO PRN (01:02)
[2023-03-07] MEDS ORDERED: Calcium Carbonate 500 MG ChewTAB PO PRN (01:02)
[2023-03-07] MEDS ORDERED: Electrolyte Replacement Protocol 1 EACH FS ONE (01:03)
[2023-03-07] MEDS ORDERED: Electrolyte Replacement Protocol FS PRN (01:15)
[2023-03-07] MEDS: traMADol HCl 50 MG TAB PO PRN ×2 (01:59→11:38)
[2023-03-07 02:22] VITALS: BMI 22.8
[2023-03-07 05:23] LABS: Anion Gap 13 mmol/L (10-20); BUN (Urea Nitrogen) 12 mg/dL (8.4-25.7); Calc. Creatinine Clearance 106 mL/min (70-130); Calcium 9.1 mg/dL (7.8-10.44); Carbon Dioxide 24 mmol/L (23-31); Chloride 103 mmol/L (98-107); Estimated GFR 100; Glucose 105 mg/dL (80-115); Potassium 3.5 mmol/L (3.5-5.1); Sodium 136 mmol/L (136-145)
[2023-03-07] MEDS ORDERED: Carvedilol 6.25 MG TAB PO SCH (08:00)
[2023-03-07] MEDS ORDERED: Potassium Chloride 20 MEQ TAB PO SCH (08:00)
[2023-03-07] MEDS ORDERED: Famotidine 20 MG TAB PO SCH (09:00)
[2023-03-07] MEDS ORDERED: Amantadine HCl 100 mg Capsule PO SCH (09:00)
[2023-03-07 11:00] VITALS: BP 121/68
[2023-03-07] MEDS ORDERED: Magnevist 469MG/ML 20 ML VIAL ONE ×4 (11:18)
[2023-03-07 12:13] VITALS: TEMP 97
== END 2023-03-07 14:22 | disposition home or self-care (01) | DRG 641 ==
LOC: ERS 21:21 → 2NO 03-07 00:19
PROVIDERS: ADMIT Student in an Organized Health Care Education/Training Program; ATTEND Internal Medicine
DX: E87.6 Hypokalemia (principal); S39.012A Strain of muscle, fascia and tendon of lower back, initial encounter; E78.5 Hyperlipidemia, unspecified; I10 Essential (primary) hypertension; I25.10 Atherosclerotic heart disease of native coronary artery without angina pectoris; Z88.8 Allergy status to other drugs, medicaments and biological substances; Z99.3 Dependence on wheelchair; Z79.899 Other long term (current) drug therapy; Z95.1 Presence of aortocoronary bypass graft; Z90.49 Acquired absence of other specified parts of digestive tract; Z93.3 Colostomy status
CPT/HCPCS: 36415; 70450; 70553; 71045; 72156; 72157; 72158; 80048; 80053; 83605; 83735; 84484; 85025; 93005; J3480

== ENCOUNTER 2023-04-13 09:21 | Outpatient (CLI) | payer MEDICARE | END 2023-04-13 09:22 | disposition home or self-care (01) | LOC: SCSRAD 09:21 | PROVIDERS: ATTEND Internal Medicine Cardiovascular Disease | DX: Z48.812 Encounter for surgical aftercare following surgery on the circulatory system (principal); Z95.1 Presence of aortocoronary bypass graft; J98.4 Other disorders of lung; Q79.1 Other congenital malformations of diaphragm | CPT/HCPCS: 71046 ==

== ENCOUNTER 2024-06-12 01:28 | Emergency (ER) | payer MEDICARE ==
[2024-06-12 02:53] LABS: #Basophils Less than 0.03 10x3/uL (0.0-0.2); #Eosinophils Less than 0.03 10x3/uL (0.0-0.7); %Basophils 0.5 % (0.0-1.0); %Eosinophils 0.2 % (0.0-10.0); %Lymphocytes 8.7 % (21.0-51.0); %Monocytes 17.5 % (0.0-10.0); %Neutrophils 72.6 % (42.0-75.0); Hematocrit 39.6 % (42.0-52.0); Hemoglobin 13.2 g/dL (14.0-18.0); Mean Corpuscular HGB CONC 33.3 g/dL (32.0-36.0); Mean Corpuscular Hemoglobin 30.8 pg (27.0-31.0); Mean Corpuscular Volume 92.3 fL (78.0-98.0); Mean Platelet Volume 9.4 fL (7.4-10.4); Platelet Count 121 10x3/uL (130-400); Red Blood Cell (RBC) Count 4.29 mill/uL (4.70-6.10)
[2024-06-12] MEDS ORDERED: Acetaminophen 500 MG TAB ONE (03:03)
[2024-06-12 03:18] LABS: ALT (SGPT) 32 U/L (8-55); AST (SGOT) 29 U/L (5-34); Albumin 3.7 g/dL (3.4-4.8); Alkaline Phosphatase 95 U/L (40-110); Anion Gap 14 mmol/L (10-20); BUN (Urea Nitrogen) 14 mg/dL (8.4-25.7); Bilirubin, Total 0.5 mg/dL (0.2-1.2); Calc. Creatinine Clearance 0 mL/min (70-130); Calcium 8.8 mg/dL (7.8-10.44); Carbon Dioxide 25 mmol/L (23-31); Chloride 102 mmol/L (98-107); Estimated GFR 96; Globulin 2.6 g/dL (2.4-3.5); Glucose 117 mg/dL (83-110); Potassium 3.8 mmol/L (3.5-5.1); Protein, Total 6.3 g/dL (5.8-8.1); Sodium 137 mmol/L (136-145)
[2024-06-12 03:33] LABS: Troponin I Less than 0.010 ng/mL (< 0.028)
[2024-06-12 04:29] LABS: Bacteria/HPF None Seen HPF (None Seen); Bilirubin Negative (Negative); Blood, Urine Negative (Negative); CAUTI Indications for Culture Fever or rigors; Clarity Clear (Clear); Glucose, Urine (Dipstick) Normal (Negative); Ketone, Urine 10 mg/dL (Negative); Leukocyte Negative Leu/uL (Negative); Nitrite Negative (Negative); Protein, Urine (Dipstick) 20 mg/dL (Neg-Trace); RBC/HPF 0-3 HPF (0-3); Specific Gravity, Urine 1.029 (1.002-1.036); Squamous Epithelial None Seen HPF (0-3); Urobilinogen Normal mg/dL (Less than 2); WBC/HPF 0-3 HPF (0-3); pH, Urine 5.5 (5.0-9.0)
[2024-06-12 04:30] LABS: Urine Culture Reflex No No
== END 2024-06-12 05:34 | disposition home or self-care (01) ==
LOC: ERS 01:28
DX: J11.1 Influenza due to unidentified influenza virus with other respiratory manifestations (principal); R53.1 Weakness; I10 Essential (primary) hypertension
CPT/HCPCS: 36415; 71045; 80053; 81001; 83735; 84484; 85025; 87428; 93005

== ENCOUNTER 2024-06-13 23:20 | Emergency (ER) | payer MEDICARE ==
[2024-06-14 01:21] LABS: ALT (SGPT) 27 U/L (8-55); AST (SGOT) 30 U/L (5-34); Albumin 3.4 g/dL (3.4-4.8); Alkaline Phosphatase 83 U/L (40-110); Anion Gap 17 mmol/L (10-20); BUN (Urea Nitrogen) 18 mg/dL (8.4-25.7); Bilirubin, Total 0.5 mg/dL (0.2-1.2); Calc. Creatinine Clearance 0 mL/min (70-130); Carbon Dioxide 20 mmol/L (23-31); Chloride 105 mmol/L (98-107); Estimated GFR 96; Globulin 2.2 g/dL (2.4-3.5); Glucose 125 mg/dL (83-110); Potassium 3.6 mmol/L (3.5-5.1); Protein, Total 5.6 g/dL (5.8-8.1); Sodium 138 mmol/L (136-145)
[2024-06-14 01:22] LABS: Troponin I Less than 0.010 ng/mL (< 0.028)
[2024-06-14 01:33] LABS: Platelet Adequacy Comment Platelets Decreased
[2024-06-14 01:43] LABS: #Basophils Less than 0.03 10x3/uL (0.0-0.2); %Basophils 0.2 % (0.0-1.0); %Eosinophils 1.6 % (0.0-10.0); %Monocytes 13.8 % (0.0-10.0); %Neutrophils 69.9 % (42.0-75.0); Hematocrit 40.3 % (42.0-52.0); Hemoglobin 13.4 g/dL (14.0-18.0); Mean Corpuscular HGB CONC 33.3 g/dL (32.0-36.0); Mean Corpuscular Volume 90.4 fL (78.0-98.0); Mean Platelet Volume 10.5 fL (7.4-10.4); Platelet Count 108 10x3/uL (130-400); RBC Distribution Width 12.9 % (11.5-14.5); Red Blood Cell (RBC) Count 4.46 mill/uL (4.70-6.10)
[2024-06-14 04:17] LABS: Bacteria/HPF None Seen HPF (None Seen); CAUTI Indications for Culture Alt mental st,lethar; RBC/HPF 0-3 HPF (0-3); Squamous Epithelial None Seen HPF (0-3)
[2024-06-14 04:56] LABS: Urine Culture Reflex No No
[2024-06-14 06:34] LABS: Bilirubin Negative (Negative); Blood, Urine Negative (Negative); Glucose, Urine (Dipstick) Negative (Negative); Ketone, Urine Negative (Negative); Leukocyte Negative (Negative); Nitrite Negative (Negative); Protein, Urine (Dipstick) Trace mg/dL (Neg-Trace); Specific Gravity, Urine 1.025 (1.005-1.030); Urobilinogen 0.2 mg/dL (Less than 2)
[2024-06-14 06:35] LABS: Clarity Hazy (Clear)
== END 2024-06-14 04:33 | disposition home or self-care (01) ==
LOC: ERS 23:20
DX: R55 Syncope and collapse (principal); I10 Essential (primary) hypertension; R29.700 NIHSS score 0
CPT/HCPCS: 36415; 70450; 71045; 80053; 81001; 83880; 84443; 84484; 85025; 93005